=== PATIENT | male | born 1985 | race Caucasian/White ===

== ENCOUNTER 2021-08-31 14:00 | Outpatient (RCR) | payer BC, SELFPAY ==
[2021-06-29 11:15] VITALS: BMI 20.9
[2021-06-29 11:25] VITALS: BMI 20.9
== END 2021-09-20 14:48 | disposition home or self-care (01) ==
LOC: ANHDMC 14:00
PROVIDERS: Visit Provider Internal Medicine Endocrinology, Diabetes & Metabolism
DX: E11.65 Type 2 diabetes mellitus with hyperglycemia (principal); Z71.3 Dietary counseling and surveillance; Z71.89 Other specified counseling
CPT/HCPCS: 97802; G0108

== ENCOUNTER 2021-10-15 20:18 | Emergency (ER) | payer BC, SELFPAY ==
--- NOTE | ~2021-10-15 | CT_ITS ---
EXAMINATION: CT abdomen pelvis w con DATE: 10/15/2021 21:38 INDICATION: Acute abdominal pain started today. Nausea and vomiting. TECHNIQUE: Computed tomography (CT) of the abdomen and pelvis was performed with 100 cc Omnipaque 350 intravenous contrast. The dose-length product was 340.35 mGy-cm. Automated exposure control and iter ative reconstruction technique were employed. COMPARISON: None. FINDINGS: Lung bases are unremarkable. No significant pleural or pericardial effusion. Heart size nor mal. Small hiatal hernia. The liver, spleen, pancreas, adrenal glands and kidneys are unremarkable. N onobstructive bowel gas pattern. No significant vascular abnormality. No lymphadenopathy. No free air or free fluid. Gallbladder is present. Normal appendix. IMPRESSION: 1. No acute abdominal abnormality. Reviewed, dictated and finalized at location A. [employer]
[2021-10-15 20:31] VITALS: BP 131/86; PULSE 91; RESP 18; TEMP 37.1; O2SAT 100
[2021-10-15 21:01] LABS: Basophils Percent Auto 0.4 % (0.2-1.2); Eosinophils Absolute Auto 0.3 K/mm3 (0-0.3); Eosinophils Percent Auto 3.7 % (0-4.4); Hematocrit 43.9 % (42.0-52.0); Hemoglobin 14.7 g/dL (14.0-18.0); Immature Granulocyte Absolute 0.01 K/mm3 (0.00-0.031); Immature Granulocyte Percent A 0.1 % (0-0.5); Lymphocytes Absolute Auto 2.21 K/mm3 (0.9-3.2); Mean Corpuscular HGB Conc 33.5 g/dl (32-36); Mean Corpuscular Hemoglobin 29.5 pg (26-34); Mean Corpuscular Volume 88.2 fl (80-100); Mean Platelet Volume 10.7 fl (7.4-10.4); Monocytes Absolute Auto 0.7 K/mm3 (0.1-0.6); Monocytes Percent Auto 8.5 % (2.6-8.5); Neutrophils Percent Auto 60.3 % (45.5-73.1); Platelet Count Result 186 k/mm3 (150-375); Red Blood Count 4.98 M/mm3 (4.6-6.20); Red Cell Distribution Width 12.6 % (11.5-14.5); White Blood Count 8.2 K/mm3 (4.5-10.0)
[2021-10-15] MEDS: KETOROLAC 30 MG/ML VIAL (*BKC) IV PUSH (21:10)
[2021-10-15 21:11] LABS: Alanine Aminotransferase 26 U/L (4-50); Albumin Level 4.6 g/dL (3.5-5.1); Alkaline Phosphatase 53 U/L (38-126); Anion Gap 5 mmol/L (8-16); Aspartate Amino Transferase 25 U/L (17-59); Bilirubin,Total 0.5 mg/dL (0.2-1.3); Blood Urea Nitrogen 14 mg/dL (9-20); Calcium 9.2 mg/dL (8.4-10.2); Carbon Dioxide 32 mmol/L (22-30); Chloride 100 mmol/L (98-107); Estimated CRCL calculation 101 ml/min; Estimated Glomerular Filt Rate > 60; Glucose 113 mg/dL (65-110); Lipase 48 U/L (23-300); Potassium 3.8 mmol/L (3.4-5.0); Sodium 137 mmol/L (137-145)
[2021-10-15] MEDS: SODIUM CHLORIDE 0.9% IV 1,000 ML 999 ML IV CONT (21:11)
[2021-10-15] MEDS: ONDANSETRON INJ 4 MG/2 ML VIAL IV PUSH (21:11)
--- NOTE | 2021-10-15 21:29 | PC.NURSE ---
pt in CT at this time.
[2021-10-15 21:51] VITALS: BP 128/75; PULSE 78; RESP 18; O2SAT 100
[2021-10-15] MEDS: MORPHINE SULFATE (*CRX) 4 MG/ML INJ IV PUSH (21:51)
[2021-10-15 22:21] LABS: Add Urine Microscopic? YES; Appearance Urine Clear (Clear); Bilirubin Urine Negative (Negative); Blood Urine 1+ (Negative); Color Urine Straw (Yellow); Glucose Urine UA Negative (Negative); Ketones Urine Negative (Negative); Leukocyte Esterase Ur Negative LEU/UL (Negative); Nitrate Urine Negative (Negative); Protein Urine Negative (Negative); RBC Urine 0-2 /hpf (0-2); Specific Grav Ur 1.043 (1.001-1.035); Squamous Epithelial Cell Urine Rare /hpf (Few); Urobilinogen Urine Negative mg/dL (<2.0); WBC Urine 0-3 /hpf
[2021-10-15 22:26] LABS: Lactic Acid Reflex 0.8 mmol/L (0.7-2.1)
--- NOTE | 2021-10-15 22:35 | ED.GENADULT ---
HPI - General Adult General Chief complaint: Abdominal Pain Stated complaint: lower abd. pain Time Seen by Provider: 10/15/21 20:41 History of Present Illness HPI narrative: Patient is a 36-year-old male who presents ER with periumbilical pain. Increasing throughout the day. Sharp and cramping. No radiation. Pain is worsened by physical movements. Patient unable to bend over to tie his shoe or to lay down flat due to the discomfort. Patient reports he is passing gas. He did feel as if he is bloating and tried some Gas-X with no relief. Reports that over the last couple weeks has had some episodes of intermittent vomiting but was experiencing no such symptoms today. He is recently been started on ozempic and after discussing with his primary care doctor his symptoms, was referred to the ER to rule out possible pancreatitis. Patient has no previous history of pancreatitis. No history of bowel obstruction or abdominal surgery. No associated urinary symptoms. Patient denies any physical injury to his abdomen. Related Data Home Medications Medication Instructions Recorded Confirmed metformin 1,000 mg tablet 1,000 mg PO DAILY 02/10/20 omeprazole 20 mg capsule,delayed 20 mg PO DAILY 02/10/20 release Allergies Allergy/AdvReac Type Severity Reaction Status Date / Time lactose intolerance Allergy Unknown Uncoded 07/25/16 05:59 Review of Systems Review of Systems: All systems reviewed & are unremarkable except as noted in HPI and below Constitutional: Constitutional: Denies chills, Denies fever(s) and Denies weakness Cardiovascular: Cardiovascular: Denies chest pain Respiratory: Respiratory: Denies cough and Denies dyspnea Gastrointestinal: Gastrointestinal: Reports abdominal pain, Reports bloating, Denies diarrhea, Denies nausea and Denies vomiting Genitourinary: Genitourinary: Denies dysuria and Denies urinary frequency Comments: Denies flank pain PMFSH Past Medical History Medical History (Updated 10/15/21 @ 22:52 by Kirby Isaacs MD) Type 2 diabetes mellitus Surgical History Surgical History (Updated 10/15/21 @ 22:37 by Kirby Isaacs MD) No pertinent past surgical history Family History Family History (Updated 02/26/18 @ 16:13 by DOCTOR UNKNOWN) Father Diabetes mellitus Social History Social History (Updated 02/10/20 @ 16:09 by Nisha Cardenas [facility]) Smoking status: Current every day smoker Tobacco type: e-cigarettes/vaping Alcohol intake: unknown Substance use: never Spiritual care concerns: No Exam Narrative: GENERAL: Uncomfortable-appearing, well-nourished, and in no acute distress. HEAD: Normocephalic, atraumatic. CHEST: Clear to auscultation. No respiratory distress. HEART: Regular rate and rhythm. Normal peripheral pulses. ABDOMEN: Soft, nontender, nondistended. No CVA tenderness EXTREMITIES: Normal range of motion. No edema. SKIN: Warm, dry, no rash. NEURO: Alert and oriented x3. PSYCH: Normal mood and affect. Course Course Emergency Course: Patient with significant discomfort with any movement. No improvement with Toradol but had moderate improvement with morphine. Lab work and imaging unremarkable. Patient may have some mild constipation. Will discharge with some stool softeners recommend follow-up with PCP. Vital Signs Vital signs: Vital Signs Temperature 98.8 F 10/15/21 20:31 Pulse Rate 91 10/15/21 20:31 Respiratory Rate 18 10/15/21 20:31 Blood Pressure 131/86 10/15/21 20:31 Pulse Oximetry 100 10/15/21 20:31 Temperature 98.8 F 10/15/21 20:31 Pulse Rate 78 10/15/21 21:51 Respiratory Rate 18 10/15/21 21:51 Blood Pressure 128/75 10/15/21 21:51 Pulse Oximetry 100 10/15/21 21:51 Medical Decision Making Vital Signs Vital Signs: Vital Signs Temperature 98.8 F 10/15/21 20:31 Pulse Rate 91 10/15/21 20:31 Respiratory Rate 18 10/15/21 20:31 Blood Pressure 131/86 10/15/21 20:31 Puls
[2021-10-15 22:39] VITALS: BP 124/92; PULSE 78; RESP 18; O2SAT 98
[2021-10-15] MEDS: DICYCLOMINE HCL 10 MG CAPSULE 20 MG PO (23:18)
[2021-10-15] MEDS: DOCUSATE SODIUM 100 MG CAPSULE PO (23:19)
[2021-10-15 23:21] VITALS: BP 125/85; PULSE 72; RESP 16; O2SAT 98
== END 2021-10-15 23:24 | disposition home or self-care (01) ==
PROVIDERS: Emergency Provider Emergency Medicine
DX: R10.33 Periumbilical pain (principal); E11.9 Type 2 diabetes mellitus without complications; Z79.84 Long term (current) use of oral hypoglycemic drugs; F17.290 Nicotine dependence, other tobacco product, uncomplicated
CPT/HCPCS: 36415; 74177; 80053; 81001; 83605; 83690; 85025; 96361; 96374; 96375; 99284; A9270; J1885; J2270; J2405; J7030; Q9967

== ENCOUNTER 2025-06-02 13:48 | Emergency (ER) | payer BC, SELFPAY ==
[2025-06-02 14:04] VITALS: BP 92/80; PULSE 104; RESP 16; TEMP 37.3; O2SAT 99
--- NOTE | 2025-06-02 14:10 | ED.EAR ---
HPI - Ear Problem General Chief complaint: Ear Stated complaint: Ear Pain Time Seen by Provider: 06/02/25 14:29 Source: patient and RN notes reviewed Mode of arrival: ambulatory Limitations: no limitations History of Present Illness HPI Narrative: 39-year-old male presents concern for bilateral ear pain for 1 month. Reports are tender to touch. He reports some ringing in the ears. He denies upper respiratory infection symptoms. He denies fever MD Complaint: ear pain Related Data Home Medications ?Medication ?Instructions ?Recorded ?Confirmed ?Last Taken ?Type metformin 1,000 mg tablet 1,000 mg PO DAILY 02/10/20 06/02/25 Unknown History omeprazole 20 mg capsule,delayed 20 mg PO DAILY 02/10/20 06/02/25 Unknown History release glipizide 5 mg tablet, extended 5 mg PO DAILY PRN blood sugar 06/02/25 06/02/25 Unknown History release 24 hr insulin glargine 100 unit/mL (3 20 unit subcut QPM 06/02/25 06/02/25 Unknown History mL) subcutaneous pen (Lantus Solostar U-100 Insulin) tirzepatide 7.5 mg/0.5 mL 7.5 mg subcut WEEKLY 06/02/25 06/02/25 Unknown History subcutaneous pen injector (Mounjaro) Allergies Allergy/AdvReac Type Severity Reaction Status Date / Time lactose intolerance Allergy Mild Gastrointestinal Uncoded 06/02/25 13:58 Upset Review of Systems Review of Systems: CONSTITUTIONAL: Denies malaise, chills, sweats, or fever. EYES: Denies visual changes, redness, or discharge. ENT: Denies rhinorrhea, congestion, sinus pain, and sore throat. Reports bilateral ear pain CARDIOVASCULAR: Denies chest pain, palpitations, or edema. RESPIRATORY: Denies cough. Denies dyspnea. GASTROINTESTINAL: Denies abdominal pain, nausea, vomiting, diarrhea SKIN: Denies rash or itching. MUSCULOSKELETAL: Denies myalgia. NEUROLOGIC: Denies headache. All systems reviewed & are unremarkable except as noted in HPI and below PMFSH Past Medical History Medical History (Updated 06/02/25 @ 14:33 by Adriana Clinton NP) Type 2 diabetes mellitus Surgical History Surgical History (Updated 10/15/21 @ 22:37 by Kirby Isaacs MD) No pertinent past surgical history Family History Family History (Updated 02/26/18 @ 16:13 by DOCTOR UNKNOWN) Father Diabetes mellitus Social History Social History (Updated 02/10/20 @ 16:09 by Nisha Cardenas [facility]) Smoking status: Current every day smoker Tobacco type: e-cigarettes/vaping Alcohol intake: unknown Substance use: never Spiritual care concerns: No Comments At time of signature, agree with nursing past medical, surgical, social and family history. There is no relevant family history pertinent to the presenting complaint Exam Narrative: GENERAL: Well-appearing, well-nourished, and in no acute distress. HEAD: Normocephalic EYES: PERRLA, conjunctivae clear ENT: Nares clear. Mucous membranes moist. TM erythematous and bulging bilaterally; no tragal tenderness, EAC unremarkable. No post or pre-auricular erythema, induration, or warmth noted. Oropharynx not erythematous without lesions. Tonsils not enlarged and without exudate, no drooling, no hoarseness, no trismus, uvula midline. NECK: Supple. No lymphadenopathy CHEST: Clear to auscultation, breath sounds equal. No wheezing, rhonchi, rales, or stridor. No respiratory distress, speaks in full sentences. HEART: Regular rate and rhythm. No murmur heard. SKIN: Warm, dry, no rash. NEURO: Alert and oriented x3. PSYCH: Normal mood and affect Course Course Emergency Course: Patient is aware of diagnosis, understands and agrees to treatment plan. Anticipatory guidance given. Patient agrees to follow-up as directed and is aware of reasons to seek care at the emergency department. Portions of this record may have been created with voice recognition software Level of Care: Express Care Visit Vital Signs Vital signs: Vital Signs Temperature 99.1 F 06/02/25 14:04 Pulse Rate 104 H 06/02/25 14:04 Respiratory Rate 16 06/02/25 14:04 Blood Pressure 92/80 L 06/02/25 14:04 Pulse Oximetry 99 06/02/25 14:04 Temperature 99.1 F 06/02/25 14:04 Pulse Rate 104 H 06/02/25 14:04 Respiratory Rate 16 06/02/25 14:04 Blood Pressure 92/80 L 06/02/25 14:04 Pulse Oximetry 99 06/02/25 14:04 Reviewed. Medical Decision Making MDM Narrative Medical decision making narrative: I evaluated this in the [facility] care. History is obtained from patient who is an independent historian and physical exam was performed.? Available medical records were reviewed. ? Exam findings and relevant testing show no acute concerns or changes; patient is non-toxic appearing and is in no distress. Differential diagnosis considered: [place] virus, strep pharyngitis, allergic rhinitis, upper respiratory tract infection, sinusitis, rhinosinusitis, nasopharyngitis. viral pharyngitis, otitis media, otitis externa, otitis effusion, pre/post auricular cellulitis, mastoiditis, cerumen impaction, foreign body. Exam findings show no acute concerns or changes; patient is non-toxic appearing and is in no distress. Patient is appropriate for outpatient treatment and follow-up. ? Differential diagnosis and treatment plan were discussed with the patient. Patient agrees with discussion and after shared medical decision making agrees with plan of care. All questions were answered to the patient's satisfaction. Patient is appropriate for outpatient treatment and follow-up. Vital Signs Vital Signs: Vital Signs Temperature 99.1 F 06/02/25 14:04 Pulse Rate 104 H 06/02/25 14:04 Respiratory Rate 16 06/02/25 14:04 Blood Pressure 92/80 L 06/02/25 14:04 Pulse Oximetry 99 06/02/25 14:04 Temperature 99.1 F 06/02/25 14:04 Pulse Rate 104 H 06/02/25 14:04 Respiratory Rate 16 06/02/25 14:04 Blood Pressure 92/80 L 06/02/25 14:04 Pulse Oximetry 99 06/02/25 14:04 Critical Care Time Critical Care Time Critical Care Time: No Discharge Plan Discharge Clinical Impression: Otitis media Qualifiers: Otitis media type: suppurative Chronicity: acute Laterality: bilateral Recurrence: non-recurrent Patient Disposition: Home Condition: Stable Instructions: Antibiotic Form, Ear Infection (ED) Additional Instructions: Take antibiotics as directed. Recommend antihistamine such as Benadryl at night time and Zyrtec or Deirdre during the day until symptoms improve Pseudoephedrine per pack instructions for the next 2 3 days Also, recommend symptomatic treatment includes: rest, fluids, and increase humidity of the air at home. Recommend Acetaminophen as directed on the bottle to reduce fever, pain Please schedule a follow-up visit with your personal physician for further evaluation and treatment within 3-5days. If your symptoms persist, change or worsen significantly before you can contact your personal physician then please, without delay, go to the emergency department for further evaluation. Patient Language: Belizean Prescriptions: New amoxicillin 875 mg tablet 875 mg PO Q12H 10 Days Qty: 20 0RF No Action insulin glargine [Lantus Solostar U-100 Insulin] 100 unit/mL (3 mL) insulin pen 20 unit SUBCUT QPM glipizide 5 mg tablet extended release 24hr 5 mg PO DAILY PRN (Reason: blood sugar) Mounjaro 7.5 mg/0.5 mL pen injector 7.5 mg SUBCUT WEEKLY metformin 1,000 mg tablet 1,000 mg PO DAILY omeprazole 20 mg capsule,delayed release(DR/EC) 20 mg PO DAILY docusate sodium [Colace] 100 mg capsule 100 mg PO DAILY Qty: 7 0RF docusate sodium [Colace] 100 mg capsule 100 mg PO DAILY Qty: 7 0RF ondansetron 4 mg tablet,disintegrating 4 mg PO Q6H PRN (Reason: nausea and vomiting) Qty: 10 0RF Follow-up/Referrals: PHYSICIAN,MAT ROLLER [Primary Care Provider, Internal Medicine] Time of Disposition: 14:34
== END 2025-06-02 14:38 | disposition home or self-care (01) ==
PROVIDERS: Emergency Provider Nurse Practitioner
DX: H66.003 Acute suppurative otitis media without spontaneous rupture of ear drum, bilateral (principal); F17.290 Nicotine dependence, other tobacco product, uncomplicated; E11.9 Type 2 diabetes mellitus without complications; Z79.4 Long term (current) use of insulin; Z79.84 Long term (current) use of oral hypoglycemic drugs
CPT/HCPCS: 99213; G0463